=== PATIENT | female | born 1975 | race Caucasian/White ===

== ENCOUNTER → 2024-02-10 10:30 | Outpatient (REF) | payer OTHER, SELFPAY | LOC: WDC 10:30 | PROVIDERS: ATTENDING PHYSICIAN Family Medicine | DX: Z12.31 Encounter for screening mammogram for malignant neoplasm of breast (principal) | CPT/HCPCS: 77063; 77067 ==

== ENCOUNTER 2024-07-17 01:44 | Emergency (ER) | payer OTHER, SELFPAY ==
[2024-07-17 01:52] VITALS: BP 158/88
--- NOTE | 2024-07-17 02:23 | ED.GENMED ---
History of Present Illness
General
Chief Complaint: Headache
Time Seen by Provider: 07/17/24 02:10
History of Present Illness
History of Present Illness:
49-year-old female presents to the emergency department for evaluation of a migraine headache developing approximate 4 hours ago. Feels typical for her migraines. Reports associated nausea vomiting and photophobia. Used 1 dose of Imitrex without
relief. No atypical features for this headache
Past History
Past History
ED Past Medical History: Seizures, Psychiatric (ADHD) and Other (Migraines)
ED Past Surgical History:
Social History
Tobacco: Non-smoker
Alcohol: None
Personal: Other (Seperated)
Living: with family
Employment: Employed
Family History
Family History: Other (Dad with lung cancer and coronary disease, mother with hypothyroidism)
Review of Systems
Review of Systems
Allergies reviewed?: Yes
All Other Systems: ROS reviewed and negative except as documented in HPI and ROS
Phy Exam
Physical Exam
Physical Exam:
GEN: Well appearing, NAD, WDWN
HEENT: Oral mucosa moist, no scleral icterus
Cardiac: Regular rate
Lung: No respiratory distress, no tachypnea
MSK: No gross deformity or injuries
Skin: Good color, no pallor or jaundice, no rashes
Neuro: AO x3, moves all extremities freely, cranial nerves II through XII grossly intact
Psych: Calm, cooperative
Course
Orders/Labs/Results
Orders:
Orders
07/17/24 02:18
Ketorolac [Toradol] 15 mg IV NOW STA
Magnesium Sulfate 2 Gram/50 ml [Magnesium Sulfate] 2 gram in 50 ml IV NOW
Metoclopramide [Reglan] 10 mg IV NOW STA
Vital Signs
Initial and Last Documented VS:
Initial Vital Signs
Temp Pulse Resp BP Pulse Ox
96.9 F L 86 26 158/88 95
07/17/24 01:52 07/17/24 01:52 07/17/24 01:52 07/17/24 01:52 07/17/24 01:52
Last Documented Vital Signs
Temp Pulse Resp BP Pulse Ox
96.9 F L 86 26 158/88 98
07/17/24 01:52 07/17/24 01:52 07/17/24 01:52 07/17/24 01:52 07/17/24 01:52
MDM/Problems Addressed
MDM/Problems Addressed:
Headache resolved with treatment, no indication for neuroimaging at this time, headache pattern was typical for her migraines and she has no neurologic deficits
*Critical Care Note
Total Time (30-74mins, 75-104mins- exclusive of procedures): Not Applicable
ED Attending Note
-
Portions of this chart may have been created with voice recognition software.� Occasional wrong word or��sound alike� substitutions may have occurred due to the inherent limitations of voice recognition software.
Discharge Plan
Departure
Patient Disposition: Home (Routine Discharge)
Date of Disposition: 07/17/24
Time of Disposition: 03:42
Patient with high blood pressure during this ER visit?: No
Discharge Problem:
Migraine
Instructions: Migraines (DC)
Prescriptions:
No Action
sumatriptan succinate [Imitrex] 100 MG tablet
100 mg PO DAILY PRN (Reason: headache/migraine)
alprazolam 0.5 MG tablet
0.5 mg PO DAILY PRN (Reason: anxiety)
Patient Comments:
02/07/2022: last filled 02/07/22, 30 tabs for 30 days
cyclobenzaprine 10 mg Tablet
10 mg PO DAILY PRN (Reason: muscle spasms)
ciprofloxacin HCl [Cipro] 500 mg Tablet
500 mg PO BID
dextroamphetamine-amphetamine 20 mg tablet
20 mg PO DAILY
Patient Comments:
02/07/2022: last filled 02/01/22, 30 tabs for 30 days
topiramate 50 mg Tablet
50 mg PO TID
aspirin 81 mg Tablet,Delayed Release (Dr/Ec)
81 mg PO DAILY Qty: 30 0RF
cephalexin 500 mg capsule
500 mg PO TID 7 Days Qty: 21 0RF
sulfamethoxazole-trimethoprim [Bactrim DS] 800-160 mg tablet
1 tab PO BID 7 Days Qty: 14 0RF
Referrals:
Reed French MD [Family Provider] -
Interventions
Interventions:
*Risk Screen - Suicide Last Done: 07/17/24 01:52
*General Assessment Last Done: 07/17/24 01:52
*Neglect/Abuse Screening Last Done: 07/17/24 01:52
ED- Fall Risk Assessment Last Done: 07/17/24 01:52
*ED COVID-19 Vaccine History Last Done: 07/17/24 01:52
ED- Neurological Assessment Last Done: 07/17/24 02:38
Discharge Date and Time
Print Language: [id number]
[2024-07-17 02:38] VITALS: BMI 33.5
[2024-07-17] MEDS: REGLAN 10 MG IV (02:49)
[2024-07-17] MEDS: TORADOL 15 MG IV (02:49)
[2024-07-17] MEDS: MAGNESIUM SULFATE 50 IV (02:50)
[2024-07-17 04:40] VITALS: BP 120/83
== END 2024-07-17 04:42 | disposition home or self-care (01) ==
LOC: EMR 01:44
PROVIDERS: EMERGENCY PHYSICIAN Emergency Medicine; FAMILY PHYSICIAN Internal Medicine Cardiovascular Disease
DX: G43.909 Migraine, unspecified, not intractable, without status migrainosus (principal)
CPT/HCPCS: 96374; 96375; 99284

== ENCOUNTER 2024-07-24 15:24 | Emergency (ER) | payer OTHER, SELFPAY ==
[2024-07-24 15:50] LABS: % Basophils 0.5 % (0-2); % Eosinophils 1.1 % (0-6); % Immature Granulocytes 0.5 % (0-0.5); % Monocytes 6.7 % (1.7-9.3); % Neutrophils 79.2 % (42.2-75.2); Absolute Basophils 0.1 10^3/uL (0-0.2); Absolute Eosinophils 0.1 10^3/uL (0-0.7); Absolute Immature Granulocytes 0.1 10^3/uL (0-0.05); Absolute Lymphocytes 1.2 10^3/uL (1.2-3.4); Absolute Monocytes 0.7 10^3/uL (0.1-0.6); Absolute Neutrophils 7.9 10^3/uL (1.4-6.5); Hematocrit 41.6 % (37.0-47.0); Hemoglobin 13.9 g/dL (12.0-16.0); Mean Corp Hgb Conc. 33.4 g/dL (33.0-37.0); Mean Corpuscular Volume 92.7 fL (81.0-99.0); Mean Platelet Volume 9.4 fL (7.4-10.4); Nucleated Red Blood Cells % 0 %; Platelet Count 276 10^3/uL (130-400); Red Blood Cell Count 4.49 10^6/uL (4.20-5.40); Red Cell Dist. Width 12.6 % (11.5-14.5)
[2024-07-24 15:53] LABS: HCG, Serum Qualitative Screen Negative
[2024-07-24 15:59] LABS: ALT (SGPT) 27 U/L (0-35); AST (SGOT) 27 U/L (14-36); Albumin 4.8 g/dl (3.5-5.0); Alkaline Phosphatase 61 U/L (38-126); Blood Urea Nitrogen 15 mg/dl (7-17); Calcium 9.2 mg/dl (8.4-10.2); Carbon Dioxide 23 mmol/L (22-30); Chloride 103 mmol/L (98-107); Glucose 108 mg/dl (70-99); Lipase 86 U/L (23-300); Sodium 137 mmol/L (135-145); Total Bilirubin 0.8 mg/dl (0.2-1.3); Total Protein 8.5 g/dl (6.3-8.2); eGFR > 60.00
[2024-07-24 16:06] LABS: Urine Albumin 1+ (Neg - Trace); Urine Bilirubin Negative (Negative); Urine Character Clear (Clear); Urine Color Amber; Urine Glucose Negative (Negative); Urine Ketone Negative (Negative); Urine Leukocyte Negative (Negative); Urine Nitrite Negative (Negative); Urine Occult Blood 4+ (Negative); Urine Specific Gravity 1.025 (<1.030); Urine Urobilinogen Negative (Neg - 1+)
[2024-07-24 16:53] LABS: Urine Squamous Cell >30 /LPF (Few); Urine White Cell 0-2 /HPF (0-5)
== END 2024-07-24 18:52 | disposition left against medical advice (07) ==
LOC: EMR 15:24
PROVIDERS: EMERGENCY PHYSICIAN Emergency Medicine
DX: R10.9 Unspecified abdominal pain (principal); Z53.21 Procedure and treatment not carried out due to patient leaving prior to being seen by health care provider
CPT/HCPCS: 80053; 81003; 81015; 83690; 84703; 85025

== ENCOUNTER → 2024-07-26 17:00 | Outpatient (REF) | payer OTHER, SELFPAY | LOC: RAD 17:00 | PROVIDERS: ATTENDING PHYSICIAN Nurse Practitioner | DX: R10.30 Lower abdominal pain, unspecified (principal) | CPT/HCPCS: 76830; 76856 ==

== ENCOUNTER → 2024-08-04 11:57 | Outpatient (REF) | payer OTHER, SELFPAY | LOC: RAD 11:57 | PROVIDERS: ATTENDING PHYSICIAN Nurse Practitioner | DX: M54.50 Low back pain, unspecified (principal); R10.30 Lower abdominal pain, unspecified | CPT/HCPCS: 74177; Q9967 ==

== ENCOUNTER → 2025-04-04 13:57 | Outpatient (REF) | payer OTHER, SELFPAY | LOC: RAD 13:57 | PROVIDERS: ATTENDING PHYSICIAN Physician Assistant; FAMILY PHYSICIAN Family Medicine | DX: M79.601 Pain in right arm (principal) | CPT/HCPCS: 73080; 73090 ==